=== PATIENT | female | born 1940 | race Caucasian/White ===

== ENCOUNTER → 2016-09-30 | Outpatient (CLI) | payer MEDICARE, BC ==
[~2016-09-30] MED LIST: CELEXA40 MG PO; CLARITIN 1010 MG/TAB PO; COSAMIN DS 4001 TAB PO; FLAX OIL1000 MG PO; LIPITOR20 MG PO; NAPROSYN 2250 MG/TAB PO; TUMS500 MG PO; TYLENOL 325MG325 MG PO; ZOLOFT 100MG100 MG PO
== END ==
LOC: COL.RAD 10:06
DX: R31.1 Benign essential microscopic hematuria (principal); Z90.49 Acquired absence of other specified parts of digestive tract; Z90.710 Acquired absence of both cervix and uterus
CPT/HCPCS: Q9967

== ENCOUNTER → 2016-10-03 | Outpatient (CLI) | payer MEDICARE, BC | LOC: MC.RAD 13:18 | DX: Z12.31 Encounter for screening mammogram for malignant neoplasm of breast (principal); D24.2 Benign neoplasm of left breast; D24.1 Benign neoplasm of right breast ==

== ENCOUNTER 2016-11-11 07:06 | Day surgery (SDC) | payer MEDICARE, BC ==
[~2016-11-11] VITALS: Ht 160 cm; Wt 66.1 kg
[~2016-11-11 07:06] MED LIST changes: -NAPROSYN 2250 MG/TAB PO; -TYLENOL 325MG325 MG PO; -ZOLOFT 100MG100 MG PO
[2016-11-11 07:41] VITALS: BP 111/69; PULSE 65; TEMP 98.6
[2016-11-11] MEDS ORDERED: ZOLOFT 100MG100 MG PO (07:50)
[2016-11-11] MEDS ORDERED: TYLENOL 325MG325 MG PO (07:52)
[2016-11-11] MEDS ORDERED: NAPROSYN 2250 MG/TAB PO (07:53)
[2016-11-11 09:15] VITALS: BP 91/48; PULSE 67; TEMP 97.8
[2016-11-11 09:30] VITALS: BP 91/54; PULSE 50
[2016-11-11 10:00] VITALS: BP 102/73; PULSE 53
== END 2016-11-11 10:22 | disposition home or self-care (01) ==
LOC: SDCO 07:06
DX: K64.0 First degree hemorrhoids (principal); Z80.0 Family history of malignant neoplasm of digestive organs; E78.00 Pure hypercholesterolemia, unspecified; Z85.828 Personal history of other malignant neoplasm of skin; Z86.010 Personal history of colon polyps
CPT/HCPCS: OP; J2250; J2270; J2405; J7030

== ENCOUNTER → 2017-03-20 | Outpatient (CLI) | payer MEDICARE, BC ==
[~2017-03-20] MED LIST changes: +NAPROSYN 2250 MG/TAB PO; +TYLENOL 325MG325 MG PO; +ZOLOFT 100MG100 MG PO
== END ==
LOC: COL.CARD 10:24
DX: I65.22 Occlusion and stenosis of left carotid artery (principal); R55 Syncope and collapse

== ENCOUNTER → 2017-10-09 | Outpatient (CLI) | payer MEDICARE, BC | LOC: MC.RAD 08:52 | DX: Z12.31 Encounter for screening mammogram for malignant neoplasm of breast (principal); R92.8 Other abnormal and inconclusive findings on diagnostic imaging of breast ==

== ENCOUNTER → 2017-10-17 | Outpatient (CLI) | payer MEDICARE, BC | LOC: MC.RAD 10:25 | DX: N64.89 Other specified disorders of breast (principal) ==

== ENCOUNTER → 2018-09-14 | Outpatient (CLI) | payer MEDICARE, BC | LOC: COL.VAS 13:23 | DX: I36.1 Nonrheumatic tricuspid (valve) insufficiency (principal); I51.7 Cardiomegaly; Z82.49 Family history of ischemic heart disease and other diseases of the circulatory system ==

== ENCOUNTER → 2018-10-23 | Outpatient (CLI) | payer MEDICARE, BC | LOC: MC.RAD 08:45 | DX: Z12.31 Encounter for screening mammogram for malignant neoplasm of breast (principal) ==

== ENCOUNTER → 2019-12-20 | Outpatient (CLI) | payer MEDICARE, BC | LOC: MC.RAD 10-25 13:15 | DX: Z12.31 Encounter for screening mammogram for malignant neoplasm of breast (principal) ==

== ENCOUNTER → 2020-12-20 | Outpatient (CLI) | payer MEDICARE, BC | LOC: MC.RAD 09:30 | DX: Z12.31 Encounter for screening mammogram for malignant neoplasm of breast (principal) ==

== ENCOUNTER 2021-11-20 08:13 | Day surgery (SDC) | payer MEDICARE, BC ==
[~2021-11-20] VITALS: Ht 160 cm; Wt 55.8 kg
[2021-11-20] MEDS ORDERED: ZOLOFT 100MG100 MG PO (08:31)
[2021-11-20] MEDS ORDERED: LIPITOR20 MG PO (08:31)
[2021-11-20] MEDS ORDERED: SYNTHROID0.05 MG/TA PO (08:31)
[2021-11-20] MEDS ORDERED: FLAXSEED OIL1000 MG PO (08:32)
[2021-11-20] MEDS ORDERED: COSAMIN DS 4001 CA1 PO (08:33)
[2021-11-20] MEDS ORDERED: VITAMIN D31000 IU PO (08:33)
[2021-11-20] MEDS ORDERED: NATURAL IRON65 MG PO (08:33)
[2021-11-20 08:52] VITALS: BP 112/61; PULSE 79; TEMP 98.1
[2021-11-20 10:25] VITALS: BP 96/58; PULSE 74; TEMP 97.7
[2021-11-20 10:40] VITALS: BP 94/58; PULSE 69
[2021-11-20 10:55] VITALS: BP 112/45; PULSE 70
--- NOTE | 2021-11-20 11:21 | NUR ---
1025: PATIENT ARRIVED BACK INTO BAY 3 FROM ENDO PROCEDURE. PATIENT ALERT AND AWAKE. BROUGHT INTO BAY 3. PATIENT REQUESTING BLUEBERRY MUFFIN AND ORANGE JUICE. 1040: PATIENT TOLERATING FOOD AND DRINK WELL. NO COMPLAINTS OF PAIN OR NAUSEA. 1045: DR. BRYAN IN TO SEE PATIENT. 1055: WENT THROUGH DISCHARGE INSTRUCTIONS WITH PATIENT AND . QUESTIONS ANSWERED. PATIENT'S IV REMOVED WITHOUT COMPLICATIONS. PATIENT ESCORTED TO PATIENT ENTRANCE VIA WHEELCHAIR AND GOT INTO PERSONAL VEHICLE UNASSISTED. PATIENT LEFT IN THE CARE OF HER , NEMESIO
== END 2021-11-20 11:16 | disposition home or self-care (01) ==
LOC: SDCO 08:13
DX: Z12.11 Encounter for screening for malignant neoplasm of colon (principal); Z80.0 Family history of malignant neoplasm of digestive organs; Z86.010 Personal history of colon polyps; Z53.8 Procedure and treatment not carried out for other reasons
CPT/HCPCS: J2704; J7030

== ENCOUNTER 2021-12-11 09:00 | Day surgery (SDC) | payer MEDICARE, BC ==
[~2021-12-11] VITALS: Ht 162.6 cm; Wt 55.0 kg
[~2021-12-11 09:00] MED LIST changes: +COSAMIN DS 4001 CA1 PO; +FLAXSEED OIL1000 MG PO; +NATURAL IRON65 MG PO; +SYNTHROID0.05 MG/TA PO; +VITAMIN D31000 IU PO
[2021-12-11] MEDS ORDERED: LIPITOR 40MG TA40 MG PO (09:43)
[2021-12-11 09:51] VITALS: BP 109/54; PULSE 75; TEMP 98.3
[2021-12-11 11:25] VITALS: BP 92/51; PULSE 97; TEMP 97.6
[2021-12-11 11:40] VITALS: BP 91/15; PULSE 95
[2021-12-11 11:55] VITALS: BP 96/55; PULSE 85
--- NOTE | 2021-12-11 12:05 | NUR ---
1125 PT RETURNED TO BAY 4 VIA CART. TRANSFERRED TO CHAIR WITH RN ASSIST. ALERT AND ORIENTED. MONITORS ATTACHED, INTERVALS AND ALARMS SET. VSS. PT DENIES PAIN OR NAUSEA. FOOD AND DRINK PROVIDED. CALL LIGHT IN REACH. CALLED BY ENDO NURSE. DR GREWAL TO SPEAK WITH PT. 1140 VSS. PT DENIES DISCOMFORT. TOLERATING FOOD AND DRINK WELL. 1155 VSS. PT DENIES DISCOMFORT. REVIEWED DISCHARGE INSTRUCTIONS AND EDUCATION MATERIAL, ANSWERED ALL QUESTIONS. IV REMOVED WITHOUT COMPLICATIONS. PT ALLOWED TO DRESS. 1200 TRANSFERRED PT VIA WHEELCHAIR TO PERSONAL VEHICLE TO BE DRIVEN HOME BY .
== END 2021-12-11 12:05 | disposition home or self-care (01) ==
LOC: SDCO 09:00
DX: Z12.11 Encounter for screening for malignant neoplasm of colon (principal); K57.30 Diverticulosis of large intestine without perforation or abscess without bleeding; K64.0 First degree hemorrhoids; Z86.010 Personal history of colon polyps; Z80.0 Family history of malignant neoplasm of digestive organs
CPT/HCPCS: J2704; J7030

== ENCOUNTER → 2021-12-24 | Outpatient (CLI) | payer MEDICARE, BC ==
[~2021-12-24] MED LIST changes: +LIPITOR 40MG TA40 MG PO
== END ==
LOC: MC.RAD 09:00
DX: Z12.31 Encounter for screening mammogram for malignant neoplasm of breast (principal)